=== PATIENT | female | born 1985 | race Caucasian/White ===

== ENCOUNTER 2017-04-24 13:20 | Emergency (ER) | payer OTHER ==
--- NOTE | 2017-04-24 14:00 | ED Physician Documentation ---
Female Urogenital Problems - HISTORIAN Historian: patient - HPI Stated Complaint: Burning with urination Chief Complaint: Female Urogenital Problems Onset: hours Severity: moderate Further Comments: yes (31 year old female patient presents with complaint of burning, frequency and blood in urine which started today) - Associated Symptoms Urinary Symptoms: blood in urine, discomfort w/ urination, burning w/ urination , pain w/ urination Discharge: denies: vaginal discharge, vaginal fluid leakage, odorous discharge, yellowish discharge - ROS CONST: none GI/: denies: nausea, vomiting, diarrhea CVS/RESP: none EYES/ENT: none NEURO/PSYCH: none MS/SKIN/LYMPH: none - PAST HX Past History: denies: none Other History: other (SVT, hiatal hernia, depression) Allergies/Adverse Reactions: Allergies Allergy/AdvReac Type Severity Reaction Status Date / Time No Known Allergies Allergy Verified 04/24/17 13:33 Home Medications: Ambulatory Orders Medication Instructions Recorded Atenolol [Tenormin] 12.5 mg PO D 09/26/14 Citalopram Hydrobromide [Celexa] 10 mg PO D 09/26/14 Omeprazole [Prilosec] 40 mg PO BID 09/26/14 Buspirone HCl [BUSPAR] 5 mg PO DAILY 04/24/17 Nitrofurantoin Macrocrystal 100 mg PO BID #10 capsule 04/24/17 [Macrodantin] - SOCIAL HX Smoking History: cigarettes - FAMILY HX Family History: denies: none - VITAL SIGNS Vital Signs: Vital Signs Temp Pulse Resp BP Pulse Ox 96.8 F L 112 H 18 141/92 98 04/24/17 13:20 04/24/17 13:20 04/24/17 13:20 04/24/17 13:20 04/24/17 13:20 - REVIEWED ASSESSMENTS Nursing Assessment Reviewed: Yes Vitals Reviewed: Yes ED Results Lab/Radiology - Orders Orders: ED Orders Category Date Time Status UA W/MICRO IF INDICATED Stat Lab 04/24/17 13:24 Ordered Female Urogenital Problems - EXAM General Appearance: no acute distress, alert EENT: eye inspection normal, TESSA Respiratory: no resp. distress, breath sounds nml CVS: reg rate & rhythm, heart sounds normal, equal pulses, no murmur, no gallop , PMI nml, no JVD, no friction rub, 24 Abdomen: soft, non-tender, no organomegaly, no distention, nml bowel sounds Back: non-tender, painless ROM Skin: color nml, no rash, warm,dry Extremities: non-tender, normal range of motion, no evidence of injury, no edema , J, [employer] 2ND SHIFT Neuro: oriented X3, CN's nml as tested, motor nml, sensation nml, mood/affect nml Discharge Clincal Impression: UTI (urinary tract infection) Qualifiers: Urinary tract infection type: site unspecified Hematuria presence: without hematuria Qualified Code(s): N39.0 - Urinary tract infection, site not specified Prescriptions: Nitrofurantoin Macrocrystal [Macrodantin] 100 mg PO BID #10 capsule Referrals: Primary Doctor,No [Primary Care Provider] - 2 Days Additional Instructions: occupational health physiotherapist your prescription and start it today Drink at least 64 oz of water daily. Avoid caffeinated beverages You may want to try Azo over the counter for urinary pain. Follow package directions Cranberry juice will help with symptoms. Tylenol every 4 hours as needed for pain/fever or ibuprofen every 6 hours as needed for pain and fever See your primary care provider for a repeat UA 48 hours after completing your antibiotic. Condition: Stable Disposition: 01 HOME, SELF-CARE Decision to Admit: NO Decision Time: 13:59
[2017-04-24 14:11] VITALS: BP 136/87
[2017-04-25 06:19] LABS: APPEARANCE,URINE CLEAR (CLEAR); COLOR,URINE YELLOW (YELLOW)
[2017-04-25 06:20] LABS: OCCULT BLOOD,URINE NEGATIVE (NEGATIVE); UROBILINOGEN URINE 0.2 Eu (0.2-1.0)
== END 2017-04-24 14:10 | disposition home or self-care (01) ==
LOC: ED 13:20
DX: N39.0 Urinary tract infection, site not specified (principal)
CPT/HCPCS: 81002; 99283